=== PATIENT | male | born 1940 | race Caucasian/White ===

== ENCOUNTER 2021-03-04 14:05 | Inpatient (IN) | payer MEDICARE, BC ==
[~2021-03-04] VITALS: Ht 182.9 cm; Wt 79.5 kg
[~2021-03-04 14:05] MED LIST: ALBU8.5H8 INH; AMLO2.5T2 PO; ATOR40TA PO; CLOP75TA15 PO; FURO-150 PO; GABA-534 PO; LOP25T PO; ONDA4TAB6 PO; POTA10TA36 PO; PROC-8 PO; VALS80TA2 PO
--- NOTE | 2021-03-04 15:10 | NUR ---
pt in CT, Dr Hernandez at bedside to talk with family
[2021-03-04] MEDS ORDERED: iohexol 350MG/ML 100ml bottle IV ONE (15:30)
--- NOTE | 2021-03-04 15:35 | NUR ---
pt is difficult IV start, 2 nurses have tried twice, no success, will page PICC nurse
--- NOTE | 2021-03-04 15:58 | NUR ---
PICC nurse at bedside
[2021-03-04 16:00] LABS: BASOPHILS % (AUTO) 0.5 % (0-1); EOSINOPHILS # (AUTO) 0.2 X10'3 (0-0.9); EOSINOPHILS % (AUTO) 3.9 % (0-6); HEMATOCRIT 32.1 % (42.0-52.0); LYMPHOCYTES % (AUTO) 16.9 % (21-51); MEAN CORPUSCULAR HEMOGLOBIN 36.4 PG (27.0-31.0); MEAN CORPUSCULAR HGB CONC 34.2 g/dL (33.0-36.5); MEAN CORPUSCULAR VOLUME 106.7 FL (78-98); MEAN PLATELET VOLUME 8.2 FL (7.4-10.4); MONOCYTES # (AUTO) 0.6 X10'3 (0-0.9); MONOCYTES % (AUTO) 10.6 % (2-12); NEUTROPHILS # (AUTO) 3.9 X10'3 (1.8-7.7); NEUTROPHILS % (AUTO) 68.1 % (42-75); PLATELET COUNT 253 X10'3 (140-440); RED BLOOD COUNT 3.01 X10'6 (4.70-6.10); RED CELL DISTRIBUTION WIDTH 12.3 % (11.5-14.5); WHITE BLOOD COUNT 5.7 X10'3 (4.5-11.0)
[2021-03-04] MEDS ORDERED: heparin 25,000 UNIT/250ml bag 250 ML IV SCH ×3 (16:00→17:35)
[2021-03-04] MEDS ORDERED: heparin 10,000 units/1 ML INJ IV PRN ×3 (16:00→17:35)
[2021-03-04 16:04] LABS: PARTIAL THROMBOPLASTIN TIME 34 SECONDS (22-32)
[2021-03-04 16:08] LABS: ALANINE AMINOTRANSFERASE 16 U/L (12-78); ALBUMIN 3.5 G/DL (3.4-5.0); ALBUMIN/GLOBULIN RATIO 0.9 (1.1-1.5); ALKALINE PHOSPHATASE 70 IU/L (46-116); ANION GAP 11 (8-16); ASPARTATE AMINO TRANSFERASE 19 U/L (10-37); BILIRUBIN,TOTAL 0.5 MG/DL (0.1-1.0); BLOOD UREA NITROGEN 24 MG/DL (7-18); BUN/CREATININE RATIO 28.9 (5.4-32.0); CALCIUM 9.4 MG/DL (8.5-10.1); CHLORIDE 101 MMOL/L (99-107); CREATININE 0.83 MG/DL (0.60-1.10); GLUCOSE 90 MG/DL (70-104); POTASSIUM 4.2 MMOL/L (3.5-5.1); SODIUM 140 MMOL/L (135-145); TOTAL CARBON DIOXIDE 28.3 MMOL/L (24-32); TOTAL PROTEIN 7.5 G/DL (6.4-8.2); eGFR 89 ML/MIN
[2021-03-04 16:11] LABS: TROPONIN I < 0.04 NG/ML (0.0-0.05)
[2021-03-04] MEDS ORDERED: GABA300C PO (16:12)
[2021-03-04] MEDS ORDERED: METO-395 PO (16:12)
--- NOTE | 2021-03-04 16:17 | NUR ---
PICC NURSE PLACE LONG 20 TO LEFT UPPER ARM, PT GOING TO CT
[2021-03-04] MEDS ORDERED: magnesium 2GM in 50ml NS 50 ML IV PRN (16:45)
[2021-03-04] MEDS ORDERED: heparin 10,000 units/1 ML INJ IV ONE ×2 (16:45→17:35)
[2021-03-04] MEDS ORDERED: magnesium hydroxide 30ml (MOM) UD suspension PO PRN (16:45)
[2021-03-04] MEDS ORDERED: potassium Cl 20 mEq SR tablet PO PRN ×2 (16:45)
[2021-03-04] MEDS ORDERED: ondansetron/PF 4mg/2ml inj IV PRN (16:45)
[2021-03-04] MEDS ORDERED: HYDROcodone/acetaminophen 5mg/325mg tablet PO PRN (16:45)
[2021-03-04] MEDS ORDERED: mag hydrox/Alum hydrox/simeth 30ml oral suspension PO PRN (16:45)
[2021-03-04] MEDS ORDERED: acetaminophen 325mg tablet PO PRN ×2 (16:45)
[2021-03-04] MEDS ORDERED: magnesium Cl slow-release 64mg tablet PO PRN (16:45)
[2021-03-04] MEDS ORDERED: magnesium 4gm in 100ml NS 100 ML IV PRN (16:45)
[2021-03-04] MEDS ORDERED: potassium Cl 40MEQ/1/2NS 520ml 520 ML IV PRN ×2 (16:45)
--- NOTE | 2021-03-04 16:55 | NUR ---
Dr. Lo gave verbal order for only heparin gtt to be started per cardiac protocol, no bolus needed, pt is resting quietly on gurney, resp even and unlabored, skin p/w/d, remains GCS14, oriented to person, place only
--- NOTE | 2021-03-04 17:00 | NUR ---
heparin gtt started at 900units/hr
--- NOTE | 2021-03-04 17:03 | NUR ---
pt was evaluated by teleneuro provider
[2021-03-04] MEDS: heparin 25,000 UNIT/250ml bag 250 ML IV SCH (18:10)
--- NOTE | 2021-03-04 18:15 | NUR ---
technical staff assistant at bedside, pt used urinal without assist, 300ml of yellow urine out
--- NOTE | 2021-03-04 18:17 | NUR ---
pt continues to rest quietly, no changes neurologically
[2021-03-04] MEDS ORDERED: albuterol 2.5 MG/3 ML nebule NEB PRN (18:50)
[2021-03-04] MEDS ORDERED: non-formulary drug (Ondansetron Hcl (Zofran) 8 MG) PO PRN (18:50)
[2021-03-04 19:15] VITALS: BP 157/66
[2021-03-04] MEDS: K and/or MAG REPLACEMENT MC SCH (20:00)
[2021-03-04 20:33] LABS: CLARITY,URINE CLEAR (Clear); COLOR,URINE YELLOW (Yellow); GLUCOSE, URINE NEGATIVE (Neg); KETONES,URINE NEGATIVE (Neg); LEUKOCYTE ESTERASE ,URINE NEGATIVE (Neg); NITRITES, URINE NEGATIVE (Neg); OCCULT BLOOD,URINE NEGATIVE (Neg); PROTEIN,URINE NEGATIVE (Neg); UROBILINOGEN,URINE 0.2 E.U/dL (0.2-1.0)
[2021-03-04 20:38] LABS: UA COLLECTION TYPE CLN CATCH MIDSTREAM
[2021-03-04] MEDS: docusate sod 100mg capsule PO SCH (21:00)
[2021-03-04] MEDS: metoprolol succinate 25mg (24-HOUR) SR. Tablet PO SCH (21:06)
[2021-03-04 22:00] VITALS: BP 105/47
[2021-03-05] MEDS: gabapentin 300mg capsule PO SCH ×3 (00:21→17:27)
[2021-03-05 02:00] VITALS: BP 111/39
[2021-03-05 06:00] VITALS: BP 129/51
--- NOTE | 2021-03-05 06:31 | NUR ---
Problems reprioritized. Patient report given, questions answered & plan of care reviewed with SAVITA Angel.
[2021-03-05 07:39] LABS: BASOPHILS % (AUTO) 0.4 % (0-1); EOSINOPHILS # (AUTO) 0.3 X10'3 (0-0.9); EOSINOPHILS % (AUTO) 6.2 % (0-6); HEMATOCRIT 29.1 % (42.0-52.0); HEMOGLOBIN 10.2 g/dl (14.0-17.9); LYMPHOCYTES # (AUTO) 0.9 X10'3 (1.1-4.8); LYMPHOCYTES % (AUTO) 16.3 % (21-51); MEAN CORPUSCULAR HEMOGLOBIN 36.7 PG (27.0-31.0); MEAN CORPUSCULAR VOLUME 104.9 FL (78-98); MEAN PLATELET VOLUME 8.4 FL (7.4-10.4); MONOCYTES # (AUTO) 0.6 X10'3 (0-0.9); MONOCYTES % (AUTO) 10.7 % (2-12); NEUTROPHILS # (AUTO) 3.5 X10'3 (1.8-7.7); NEUTROPHILS % (AUTO) 66.4 % (42-75); PLATELET COUNT 229 X10'3 (140-440); RED BLOOD COUNT 2.77 X10'6 (4.70-6.10); RED CELL DISTRIBUTION WIDTH 12.3 % (11.5-14.5); WHITE BLOOD COUNT 5.3 X10'3 (4.5-11.0)
[2021-03-05] MEDS: atorvastatin 20mg tablet PO SCH (07:43)
[2021-03-05] MEDS: docusate sod 100mg capsule PO SCH ×2 (07:43→20:13)
[2021-03-05] MEDS: K and/or MAG REPLACEMENT MC SCH ×2 (07:44→20:00)
[2021-03-05 07:51] LABS: ALANINE AMINOTRANSFERASE 16 U/L (12-78); ALBUMIN 2.7 G/DL (3.4-5.0); ALBUMIN/GLOBULIN RATIO 0.8 (1.1-1.5); ALKALINE PHOSPHATASE 51 IU/L (46-116); ANION GAP 8 (8-16); ASPARTATE AMINO TRANSFERASE 15 U/L (10-37); BILIRUBIN,TOTAL 0.5 MG/DL (0.1-1.0); BLOOD UREA NITROGEN 19 MG/DL (7-18); BUN/CREATININE RATIO 27.9 (5.4-32.0); CALCIUM 9.1 MG/DL (8.5-10.1); CHLORIDE 104 MMOL/L (99-107); CREATININE 0.68 MG/DL (0.60-1.10); GLUCOSE 88 MG/DL (70-104); MAGNESIUM 1.8 MG/DL (1.5-2.4); POTASSIUM 3.9 MMOL/L (3.5-5.1); SODIUM 139 MMOL/L (135-145); TOTAL CARBON DIOXIDE 27.3 MMOL/L (24-32); TOTAL PROTEIN 6.1 G/DL (6.4-8.2); eGFR > 90 ML/MIN
[2021-03-05] MEDS: metoprolol succinate 25mg (24-HOUR) SR. Tablet PO SCH ×2 (08:00→20:13)
[2021-03-05] MEDS: heparin 25,000 UNIT/250ml bag 250 ML IV SCH ×2 (08:05→12:18)
--- NOTE | 2021-03-05 08:18 | NUR ---
HELD METOPROLOL FOR PERMISSIVE HTN UNTIL CVA RULED OUT. CURRENT BP IS 129/51
--- NOTE | 2021-03-05 08:23 | NUR ---
paged Dr Christensen PAGER ID: [phone] MESSAGE: Jeanne [phone] Cayden Freedman- BEKAHI- critical PTT 97. hep gtt stopped and will hold per protocol. Added permissive htn parameters per your note from yesterday. Held Toprol.
[2021-03-05 10:00] VITALS: BP 117/49
[2021-03-05 10:09] LABS: CHOL/HDL RATIO 2.6 (0.00-4.99); CHOLESTEROL 139 MG/DL (0-200); HDL CHOLESTEROL 54 MG/DL (35-60); LDL CHOLESTEROL 75 MG/DL (50-100); TRIGLYCERIDES 38 MG/DL (20-135)
--- NOTE | 2021-03-05 12:32 | NUR ---
PAGER ID: [phone] MESSAGE: Jeanne Nataly0 re Cayden Peraza- please call Dr Esquivel radiologist at re MRI results. Thank you
[2021-03-05] MEDS: aspirin 325mg tablet PO SCH (13:13)
[2021-03-05 14:29] VITALS: BP 133/58
[2021-03-05 18:00] VITALS: BP 167/62
[2021-03-05 22:00] VITALS: BP 129/48
[2021-03-06] MEDS: gabapentin 300mg capsule PO SCH ×3 (00:17→16:13)
[2021-03-06 06:00] VITALS: BP 158/65
--- NOTE | 2021-03-06 06:19 | NUR ---
Problems reprioritized. Patient report given, questions answered & plan of care reviewed with SAVITA Lau.
[2021-03-06 06:23] LABS: BASOPHILS % (AUTO) 0.7 % (0-1); EOSINOPHILS # (AUTO) 0.4 X10'3 (0-0.9); EOSINOPHILS % (AUTO) 7.9 % (0-6); HEMATOCRIT 30.8 % (42.0-52.0); HEMOGLOBIN 10.7 g/dl (14.0-17.9); LYMPHOCYTES # (AUTO) 0.9 X10'3 (1.1-4.8); LYMPHOCYTES % (AUTO) 15.7 % (21-51); MEAN CORPUSCULAR HEMOGLOBIN 36.6 PG (27.0-31.0); MEAN CORPUSCULAR HGB CONC 34.8 g/dL (33.0-36.5); MEAN CORPUSCULAR VOLUME 105.2 FL (78-98); MEAN PLATELET VOLUME 8.2 FL (7.4-10.4); MONOCYTES # (AUTO) 0.5 X10'3 (0-0.9); MONOCYTES % (AUTO) 9.2 % (2-12); NEUTROPHILS # (AUTO) 3.7 X10'3 (1.8-7.7); NEUTROPHILS % (AUTO) 66.5 % (42-75); PLATELET COUNT 255 X10'3 (140-440); RED BLOOD COUNT 2.93 X10'6 (4.70-6.10); RED CELL DISTRIBUTION WIDTH 12.3 % (11.5-14.5); WHITE BLOOD COUNT 5.5 X10'3 (4.5-11.0)
--- NOTE | 2021-03-06 06:30 | NUR ---
Patient in room [facility] 4022B. I have received report from SAVITA ALSTON and had the opportunity to ask questions and assume patient care.
[2021-03-06 06:39] LABS: ALANINE AMINOTRANSFERASE 13 U/L (12-78); ALBUMIN 2.8 G/DL (3.4-5.0); ALBUMIN/GLOBULIN RATIO 0.8 (1.1-1.5); ALKALINE PHOSPHATASE 61 IU/L (46-116); ANION GAP 7 (8-16); ASPARTATE AMINO TRANSFERASE 14 U/L (10-37); BILIRUBIN,TOTAL 0.5 MG/DL (0.1-1.0); BLOOD UREA NITROGEN 23 MG/DL (7-18); BUN/CREATININE RATIO 27.7 (5.4-32.0); CHLORIDE 103 MMOL/L (99-107); CREATININE 0.83 MG/DL (0.60-1.10); GLUCOSE 93 MG/DL (70-104); MAGNESIUM 1.8 MG/DL (1.5-2.4); POTASSIUM 4.2 MMOL/L (3.5-5.1); SODIUM 138 MMOL/L (135-145); TOTAL PROTEIN 6.5 G/DL (6.4-8.2); eGFR 89 ML/MIN
[2021-03-06] MEDS: K and/or MAG REPLACEMENT MC SCH (08:00)
[2021-03-06] MEDS: atorvastatin 20mg tablet PO SCH (08:17)
[2021-03-06] MEDS: aspirin 325mg tablet PO SCH (08:17)
[2021-03-06] MEDS: docusate sod 100mg capsule PO SCH (08:17)
[2021-03-06] MEDS: metoprolol succinate 25mg (24-HOUR) SR. Tablet PO SCH (08:17)
[2021-03-06 10:00] VITALS: BP 127/54
[2021-03-06] MEDS ORDERED: ASPI81TA52 PO (10:50)
--- NOTE | 2021-03-06 17:39 | NUR ---
D/C INSTRUCTIONS GIVEN, QUESTIONS ANSWERED. BELONGINGS GATHERED BY NURSE AND SENT WITH PT. IV D/C'D, CANNULA INTACT, NO COMPLICATIONS. D/C'D PT IN STABLE CONDITION TO HOME IN PRIVATE VEHICLE ACCOMPANIED BY . PT LEFT FLOOR AT 1735.
--- NOTE | 2021-03-09 13:46 | NUR ---
CASE MANAGEMENT DISCHARGE FOLLOW UP: Spoke with pt's via telephone. She reports that pt had his scans done yesterday and they found out that pt has cancer, has another appoint with PCP; denies pt c/o CP, SOB, alteration in speech/vision/gait, headache. States surgical site looks good. Verbalizes understanding of s/sx requiring further evaluation/emergent assistance. Verbalizes understanding of medications. Verbalizes compliance with MD discharge instructions. Verbalizes understanding of the importance in making/keeping follow-up appointments. States no further questions/concerns at this time.
== END 2021-03-06 17:30 | disposition home or self-care (01) | DRG 69 ==
LOC: ER 14:06 → ED HOLD 16:44 → EDBEDREQ 18:24 → ORTHO 4S 19:03
PROVIDERS: ADMIT Internal Medicine; ATTEND Internal Medicine
PROC: B3251ZZ Computerized Tomography (CT Scan) of Bilateral Common Carotid Arteries using Low Osmolar Contrast (ICD-10-PCS; principal; 2021-03-04)
PROC: B32G1ZZ Computerized Tomography (CT Scan) of Bilateral Vertebral Arteries using Low Osmolar Contrast (ICD-10-PCS; 2021-03-04)
PROC: B32R1ZZ Computerized Tomography (CT Scan) of Intracranial Arteries using Low Osmolar Contrast (ICD-10-PCS; 2021-03-04)
PROC: B3281ZZ Computerized Tomography (CT Scan) of Bilateral Internal Carotid Arteries using Low Osmolar Contrast (ICD-10-PCS; 2021-03-04)
DX: G45.9 Transient cerebral ischemic attack, unspecified (principal); E78.5 Hyperlipidemia, unspecified; R47.81 Slurred speech; I10 Essential (primary) hypertension; I25.10 Atherosclerotic heart disease of native coronary artery without angina pectoris; J44.9 Chronic obstructive pulmonary disease, unspecified; I25.2 Old myocardial infarction; Z85.118 Personal history of other malignant neoplasm of bronchus and lung; Z92.21 Personal history of antineoplastic chemotherapy; Z95.1 Presence of aortocoronary bypass graft; Z79.899 Other long term (current) drug therapy
CPT/HCPCS: 36415; 70450; 70496; 70498; 70551; 71045; 80053; 80061; 81003; 82948; 83735; 84484; 85025; 85610; 85730; 87081; 93005; 93306; 97116; 97161; 97530; 99285; G0378; J1644; Q9967

== ENCOUNTER 2021-03-31 06:47 | Day surgery (SDC) | payer MEDICARE, BC ==
[~2021-03-31] VITALS: Ht 182.9 cm; Wt 81.4 kg
[~2021-03-31 06:47] MED LIST changes: -AMLO2.5T2 PO; +ASPI81TA52 PO; -FURO-150 PO; -GABA-534 PO; +GABA300C PO; -LOP25T PO; +METO-395 PO; -POTA10TA36 PO; -PROC-8 PO; -VALS80TA2 PO
[2021-03-31 07:03] VITALS: BP 149/74
[2021-03-31] MEDS ORDERED: POLY119P2 PO (07:26)
[2021-03-31] MEDS ORDERED: DOCU-148 PO (07:27)
[2021-03-31] MEDS ORDERED: CYAN100020 SL (07:27)
[2021-03-31] MEDS ORDERED: FERR-116 PO (07:28)
[2021-03-31] MEDS ORDERED: MEMA10TA PO (07:29)
[2021-03-31] MEDS ORDERED: ASCO500W7 (07:30)
[2021-03-31] MEDS ORDERED: PROC-8 PO (07:31)
[2021-03-31] MEDS ORDERED: PYRI100L2 (07:31)
[2021-03-31] MEDS ORDERED: MIDAZolam 1 MG/ML 5ML VIAL ONE (07:35)
[2021-03-31] MEDS ORDERED: fentaNYL/PF 50MCG/1 ML 2ML syringe ONE (07:35)
[2021-03-31] MEDS ORDERED: LIDOcaine Viscous 15ml cup ONE (07:35)
[2021-03-31 08:10] VITALS: BP 162/83
[2021-03-31 08:20] VITALS: BP 151/80
[2021-03-31 08:30] VITALS: BP 156/71
== END 2021-03-31 09:05 | disposition home or self-care (01) ==
LOC: GI LAB 06:47
PROVIDERS: ATTEND Specialist
DX: R13.10 Dysphagia, unspecified (principal); K21.9 Gastro-esophageal reflux disease without esophagitis; K22.2 Esophageal obstruction; K22.8 Other specified diseases of esophagus; I10 Essential (primary) hypertension; Z95.1 Presence of aortocoronary bypass graft; Z85.118 Personal history of other malignant neoplasm of bronchus and lung; Z87.891 Personal history of nicotine dependence; Z79.899 Other long term (current) drug therapy
CPT/HCPCS: 43239; 43249; 88305; 88312; C1726; G0500; J2250; J3010; J7040; 99152; A4620

== ENCOUNTER 2021-08-03 04:57 | Inpatient (IN) | payer BC ==
[2021-08-03] VITALS (8 sets, daily range): BP systolic 128–197; BP diastolic 66–92
[~2021-08-03] VITALS: Ht 182.9 cm; Wt 75.9 kg
[~2021-08-03 04:57] MED LIST changes: +ALBU8.5H17 INH; -ALBU8.5H8 INH; +ASCO500W7; -ASPI81TA52 PO; +CYAN100020 SL; +DOCU-148 PO; +FERR-116 PO; +MEMA10TA PO; +POLY119P2 PO; +PROC-8 PO; +PYRI100L2
--- NOTE | 2021-08-03 10:37 | NUR ---
patient arrived to the floor. VSS. no complaints.
--- NOTE | 2021-08-03 10:40 | NUR ---
PAGER ID: [phone] MESSAGE: Lori PerazaVictor Hugo: direct admit from [facility] has arrived. thanks! [phone] Addendum: 08/03/21 at 1103 by Britt Greenwood RN @[phone] Dr. De La O said to call to dr avalos, phone call made, Chandu said he will be up to see patient.
[2021-08-03] MEDS: normal saline 1000ml 1,000 ML IV SCH ×2 (11:20→21:59)
[2021-08-03] MEDS ORDERED: acetaminophen 325mg tablet PO PRN (11:20)
[2021-08-03] MEDS ORDERED: potassium Cl 40MEQ/1/2NS 520ml 520 ML IV PRN ×2 (11:20)
[2021-08-03] MEDS ORDERED: ondansetron/PF 4mg/2ml inj IV PRN (11:20)
--- NOTE | 2021-08-03 11:30 | NUR ---
Patient picked up for GI lab. Transport person is aware that patient does not have IV access yet.
[2021-08-03] MEDS ORDERED: fentaNYL/PF 50MCG/1 ML 2ML syringe ONE (11:58)
[2021-08-03] MEDS ORDERED: LIDOcaine Viscous 15ml cup ONE (11:59)
[2021-08-03] MEDS ORDERED: MIDAZolam 1 MG/ML 5ML VIAL ONE (11:59)
[2021-08-03] MEDS ORDERED: BENA10TA75 PO (13:00)
--- NOTE | 2021-08-03 14:07 | NUR ---
Patient arrived to floor. at bedside. VSS. no complaints
--- NOTE | 2021-08-03 18:35 | NUR ---
Problems reprioritized. Patient report given, questions answered & plan of care reviewed with SAVITA Parisi.
[2021-08-03] MEDS: K and/or MAG REPLACEMENT MC SCH (20:00)
[2021-08-04] VITALS: BP 102/63
--- NOTE | 2021-08-04 05:52 | NUR ---
pt has urinal at bedside and has been voiding in urinal . pt attempted to stand and pulled iv out of r foot. unable to obtain another iv. charge nurse chandler notified. will endorse to am shift.
--- NOTE | 2021-08-04 06:03 | NUR ---
pt resting in bed. no distress noted. bed alarm on. call light within reach . pt instructed to call nurse for assistance for needs. pt verbalized understanding
[2021-08-04 06:34] LABS: BASOPHILS % (AUTO) 0.8 % (0-1); EOSINOPHILS # (AUTO) 0.4 X10'3 (0-0.9); EOSINOPHILS % (AUTO) 9.2 % (0-6); HEMOGLOBIN 12.6 g/dl (14.0-17.9); LYMPHOCYTES # (AUTO) 0.7 X10'3 (1.1-4.8); LYMPHOCYTES % (AUTO) 15.9 % (21-51); MEAN CORPUSCULAR HEMOGLOBIN 33.5 PG (27.0-31.0); MEAN CORPUSCULAR HGB CONC 34.1 g/dL (33.0-36.5); MEAN CORPUSCULAR VOLUME 98.3 FL (78-98); MEAN PLATELET VOLUME 8.2 FL (7.4-10.4); MONOCYTES # (AUTO) 0.4 X10'3 (0-0.9); MONOCYTES % (AUTO) 8.7 % (2-12); NEUTROPHILS # (AUTO) 3.1 X10'3 (1.8-7.7); NEUTROPHILS % (AUTO) 65.4 % (42-75); PLATELET COUNT 211 X10'3 (140-440); RED BLOOD COUNT 3.76 X10'6 (4.70-6.10); RED CELL DISTRIBUTION WIDTH 13.7 % (11.5-14.5); WHITE BLOOD COUNT 4.7 X10'3 (4.5-11.0)
[2021-08-04 07:36] LABS: ALANINE AMINOTRANSFERASE 13 U/L (12-78); ALBUMIN 2.7 G/DL (3.4-5.0); ALBUMIN/GLOBULIN RATIO 0.7 (1.1-1.5); ALKALINE PHOSPHATASE 55 IU/L (46-116); ANION GAP 10 (8-16); ASPARTATE AMINO TRANSFERASE 16 U/L (10-37); BILIRUBIN,TOTAL 0.9 MG/DL (0.1-1.0); BLOOD UREA NITROGEN 10 MG/DL (7-18); BUN/CREATININE RATIO 14.7 (5.4-32.0); CALCIUM 9.2 MG/DL (8.5-10.1); CHLORIDE 108 MMOL/L (99-107); CREATININE 0.68 MG/DL (0.60-1.10); GLUCOSE 90 MG/DL (70-104); SODIUM 144 MMOL/L (135-145); TOTAL CARBON DIOXIDE 25.9 MMOL/L (24-32); TOTAL PROTEIN 6.4 G/DL (6.4-8.2); eGFR > 90 ML/MIN
[2021-08-04 08:00] VITALS: BP 168/66
[2021-08-04] MEDS ORDERED: cyanocobalamin 500mcg tablet PO SCH (08:00)
[2021-08-04] MEDS: K and/or MAG REPLACEMENT MC SCH (08:00)
[2021-08-04] MEDS ORDERED: lisinopril 10 MG tablet PO SCH (08:00)
[2021-08-04 08:16] VITALS: BP_SYST 168
--- NOTE | 2021-08-04 13:34 | NUR ---
Noted pt admit for esophageal stricture with dysphagia. S/p BSS with ST recs to continue clear liquid diet. Pt denied wt loss or decreased appetite per malnutrition risk screen with RN. Pt seen at bedside with no visible fat or muscle wasting present. Pt with no documented decrease in muscle strength or edema. Pt currently lacks a minimum of two criteria for malnutrition. Will continue to follow. Addendum: 08/04/21 at [address] Amended: Links added.
--- NOTE | 2021-08-04 14:15 | NUR ---
Pt discharged home with . Pt doing well. Ate lunch easily, was cautious over eating carrots but ate everything else on plate. Pt states knowledge of f/u with Dr Neves and says they have his phone number. IV fell out last night from foot. No other IV's. All belongings taken from room. no new meds or pharmacy meds. pt and state understanding of discharge instructions.
== END 2021-08-04 13:38 | disposition home health service (06) | DRG 392 ==
LOC: UNDOADMIN 10:29 → SUR 3N 10:29
PROVIDERS: ADMIT Family Medicine; ATTEND Family Medicine
PROC: 0D758ZZ Dilation of Esophagus, Via Natural or Artificial Opening Endoscopic (ICD-10-PCS; principal; 2021-08-03)
PROC: 0DC58ZZ Extirpation of Matter from Esophagus, Via Natural or Artificial Opening Endoscopic (ICD-10-PCS; 2021-08-03)
DX: K22.2 Esophageal obstruction (principal); C34.90 Malignant neoplasm of unspecified part of unspecified bronchus or lung; Z95.1 Presence of aortocoronary bypass graft; F03.90 Unspecified dementia, unspecified severity, without behavioral disturbance, psychotic disturbance, mood disturbance, and anxiety; I25.10 Atherosclerotic heart disease of native coronary artery without angina pectoris; I10 Essential (primary) hypertension; K21.9 Gastro-esophageal reflux disease without esophagitis; M25.78 Osteophyte, vertebrae; T18.128A Food in esophagus causing other injury, initial encounter; X58.XXXA Exposure to other specified factors, initial encounter; Y93.89 Activity, other specified; Y92.89 Other specified places as the place of occurrence of the external cause; Y99.8 Other external cause status; Z87.891 Personal history of nicotine dependence; Z79.899 Other long term (current) drug therapy; Z79.02 Long term (current) use of antithrombotics/antiplatelets
CPT/HCPCS: 36415; 43247; 43249; 80053; 85025; 92508; 92616; 99152; 99153; 99285; A4620; C1769; G0378; J2250; J3010; J7030; J7040

== ENCOUNTER 2022-05-10 10:47 | Day surgery (SDC) | payer OTHER, BC ==
[~2022-05-10] VITALS: Ht 182.9 cm; Wt 75.0 kg
[~2022-05-10 10:47] MED LIST changes: -ALBU8.5H17 INH; -ASCO500W7; -ATOR40TA PO; +BENA10TA75 PO; -CLOP75TA15 PO; -DOCU-148 PO; -FERR-116 PO; -GABA300C PO; -MEMA10TA PO; -METO-395 PO; -ONDA4TAB6 PO; -POLY119P2 PO; -PROC-8 PO; -PYRI100L2
[2022-05-10 11:15] VITALS: BP 138/75
[2022-05-10] MEDS ORDERED: normal saline 1000ml 1,000 ML IV PRN (11:15)
[2022-05-10] MEDS ORDERED: DOCU100C40 PO (11:25)
[2022-05-10] MEDS ORDERED: SUCR1ORA15 PO (11:25)
[2022-05-10] MEDS ORDERED: PROC-8 PO (11:25)
[2022-05-10] MEDS ORDERED: AMLO2.5T5 PO (11:25)
[2022-05-10] MEDS ORDERED: SUCR1TAB PO (11:25)
[2022-05-10] MEDS ORDERED: CHOL400T57 PO (11:25)
[2022-05-10] MEDS ORDERED: HYDR-3973 PO (11:25)
[2022-05-10] MEDS ORDERED: MIRT-66 PO (11:26)
--- NOTE | 2022-05-10 14:00 | NUR ---
Patient is pleasantly confused. He pulled a knife out of his pocket to "get his sliver out" of his finger. I took the knife away and put it in his belongings bag outside of his reach. stepped out to get some food, will have take it.
[2022-05-10] MEDS ORDERED: normal saline 1000ml 1,000 ML IV SCH (14:10)
[2022-05-10 14:26] LABS: BASOPHILS % (AUTO) 0.1 % (0-1); EOSINOPHILS % (AUTO) 0 % (0-6); HEMATOCRIT 34.6 % (42.0-52.0); HEMOGLOBIN 11.8 g/dl (14.0-17.9); LYMPHOCYTES # (AUTO) 0.5 X10'3 (1.1-4.8); LYMPHOCYTES % (AUTO) 3.5 % (21-51); MEAN CORPUSCULAR HEMOGLOBIN 32.8 PG (27.0-31.0); MEAN CORPUSCULAR HGB CONC 34.2 g/dL (33.0-36.5); MEAN CORPUSCULAR VOLUME 95.8 FL (78-98); MEAN PLATELET VOLUME 8.1 FL (7.4-10.4); MONOCYTES # (AUTO) 0.4 X10'3 (0-0.9); MONOCYTES % (AUTO) 3.2 % (2-12); NEUTROPHILS % (AUTO) 93.2 % (42-75); PLATELET COUNT 249 X10'3 (140-440); RED BLOOD COUNT 3.61 X10'6 (4.70-6.10); RED CELL DISTRIBUTION WIDTH 16.1 % (11.5-14.5)
--- NOTE | 2022-05-10 14:30 | NUR ---
Multiple attempts at an IV by multiple nurses. Lab tried multiple times and was unable to get a lab draw. Catherine from was finally able to get an IV and labs using the US machine and labs are now sent over.
[2022-05-10] MEDS ORDERED: fentaNYL/PF 50MCG/1 ML 2ML syringe ONE (14:46)
[2022-05-10] MEDS ORDERED: midazolam 1 mg/ML 2ml injection ONE (14:46)
[2022-05-10] MEDS ORDERED: heparin sodium, porcine/PF 100unit/ml 5ML syringe ONE (14:46)
[2022-05-10] MEDS ORDERED: LIDOcaine 1%/PF 5ML 10 MG/ML VIAL ONE ×2 (14:46→15:05)
[2022-05-10 16:00] VITALS: BP 174/73
--- NOTE | 2022-05-10 16:00 | NUR ---
Patient back from procedure. No sedation given. Collin BARNEY states patient can go home now since no sedation was given. Patient and anxious to get home since they have their dog in the car today.
[2022-05-10 16:15] VITALS: BP 180/80
[2022-05-10 16:30] VITALS: BP 181/79
== END 2022-05-10 16:30 | disposition home or self-care (01) ==
LOC: SSTAY O 10:47
PROVIDERS: ATTEND Radiology Diagnostic Radiology
DX: C34.91 Malignant neoplasm of unspecified part of right bronchus or lung (principal); I10 Essential (primary) hypertension; E78.00 Pure hypercholesterolemia, unspecified; Z79.899 Other long term (current) drug therapy; Z87.11 Personal history of peptic ulcer disease; Z86.73 Personal history of transient ischemic attack (TIA), and cerebral infarction without residual deficits; Z98.890 Other specified postprocedural states
CPT/HCPCS: 36415; 36561; 76937; 77001; 85025; 85610; C1769; C1788; C1894; J1642; J3490; J7030; J2250; J3010